=== PATIENT | female | born 1945 | race African-American/Black ===

== ENCOUNTER → 2018-06-19 | Outpatient (REF) | payer MEDICARE ==
[~2018-06-19] MED LIST: AMARYL4 MG PO; AMOXICILLIN250 M1 PO; AMOXICILLIN875 MG PO; AUGMENTIN500TAB PO; BABY ASPIRIN81 MG OR; BAYER ASPIRIN E81 MG PO; BIAXIN500 M1 PO; CIPROFLOXACN500 MG PO; COMBIVENT INH; FLONASE NASAL50 MCG; FLUTICASONE50 MCG; HUMALOG100 MG/ML SC; LANTUS100 MG/ML SC; LEVEMIR SC; LEVEMIR1000 UNITS SC; LIPITOR10 MG OR; LISINOP/HCTZ1 TA1 PO; LISINOPRIL10 MG PO; MEDDOSEPAK PO; METFORMIN500 M2 PO; NAPROSYN500 MG OR; NOVOLIN 70/30 SC; OMEPRAZOLE20 M1 PO; PHENERGAN12.5 MG/TA PO; PRAVACHOL40 MG PO; PROAIR HFA IN; QVAR80 MCG MT; SIMVASTATIN20 MG PO; STOOL SOFTE1 PO; TRAMADOL HCL50 MG PO; VERAPAMIL240 M1 PO; ZESTRIL/PRI20 MG/TAB PO; ZYRTEC-D AL1 OR; [UNRECOGNIZED DRUG - SUPPLY]; [UNRECOGNIZED DRUG - SUPPLY] XX
[2018-06-19 10:31] LABS: HEMATOCRIT 37.7 % (37.0-47.0); HEMOGLOBIN 11.6 g/dl (12.0-16.0); MEAN CELL VOLUME 78.1 fL CALC (80.0-100.0); MEAN CORPUSCULAR HGB CONC 30.8 g/L CALC (32.0-36.0); RED BLOOD COUNT 4.83 mill/uL (4.20-5.60); RED CELL DISTRI WIDTH 13.4 % (11.5-15.5)
[2018-06-19 10:50] LABS: ALBUMIN 4.7 g/dL (3.2-5.0); BILIRUBIN, TOTAL 0.3 mg/dL (0.0-1.4); CHOLESTEROL HDL RATIO 2.5 (<4.4 (CALC)); CREATININE 1.3 mg/dL (0.5-1.0); POTASSIUM 4.2 mmol/l (3.5-5.1); TOTAL PROTEIN 7.8 g/dL (6.3-8.2)
== END | disposition home or self-care (01) ==
LOC: LAB 08:55
PROVIDERS: ATTEND Nurse Practitioner Adult Health
DX: E78.2 Mixed hyperlipidemia (principal); I10 Essential (primary) hypertension

== ENCOUNTER 2019-03-06 15:05 | Emergency (ER) | payer MEDICARE ==
[~2019-03-06] VITALS: Ht 170.2 cm; Wt 75.0 kg
[2019-03-06] MEDS ORDERED: VERAPAMIL HCL240 MG PO (15:55)
[2019-03-06] MEDS ORDERED: LUMIGAN0.01 % OD (15:56)
[2019-03-06] MEDS ORDERED: GLIMEPIRIDE2 MG PO (15:56)
[2019-03-06] MEDS ORDERED: LISINOP/HCTZ1 TA1 PO (15:56)
[2019-03-06] MEDS ORDERED: GLIMEPIRIDE4 MG PO (15:57)
[2019-03-06] MEDS ORDERED: METFORMIN HCL500 M1 PO (15:57)
[2019-03-06] MEDS ORDERED: ROSUVASTATIN CA20 MG PO (15:58)
[2019-03-06 16:19] LABS: HEMATOCRIT 36.6 % (37.0-47.0); HEMOGLOBIN 11.1 g/dl (12.0-16.0); IMMATURE GRANULOCYTES 0.3 % (0.0-5.0); MEAN CELL VOLUME 76.1 fL CALC (80.0-100.0); MEAN CORPUSCULAR HGB 23.1 pG CALC (26.0-32.0); MEAN CORPUSCULAR HGB CONC 30.3 g/L CALC (32.0-36.0); NEUT# 3.86 thou/uL (2.00-7.15); RED BLOOD COUNT 4.81 mill/uL (4.20-5.60); RED CELL DISTRI WIDTH 13.7 % (11.5-15.5)
[2019-03-06 17:00] VITALS: BP 110/59
[2019-03-06] MEDS ORDERED: PREDNISONE50 MG PO (17:00)
[2019-03-06] MEDS ORDERED: TESSALON PER100 MG PO (17:00)
== END 2019-03-06 17:00 | disposition home or self-care (01) ==
LOC: ED 15:05
PROVIDERS: Family Medicine
DX: J44.1 Chronic obstructive pulmonary disease with (acute) exacerbation (principal); B34.9 Viral infection, unspecified; E11.9 Type 2 diabetes mellitus without complications; I10 Essential (primary) hypertension; Z79.84 Long term (current) use of oral hypoglycemic drugs

== ENCOUNTER 2019-05-03 | Emergency (ER) | payer MEDICARE ==
[~2019-05-03] MED LIST changes: +GLIMEPIRIDE2 MG PO; +GLIMEPIRIDE4 MG PO; +LUMIGAN0.01 % OD; +METFORMIN HCL500 M1 PO; +PREDNISONE50 MG PO; +ROSUVASTATIN CA20 MG PO; +TESSALON PER100 MG PO; +VERAPAMIL HCL240 MG PO
[2019-05-03] MEDS ORDERED: JANUVIA100 MG PO (22:40)
[2019-05-03] MEDS ORDERED: ASPIRIN CHEWABL81 MG PO (22:42)
[2019-05-03] MEDS ORDERED: GENTAMICIN0.3 % OS (22:59)
== END 2019-05-03 23:28 | disposition home or self-care (01) ==
DX: H01.002 Unspecified blepharitis right lower eyelid (principal); E11.9 Type 2 diabetes mellitus without complications; I10 Essential (primary) hypertension; J44.9 Chronic obstructive pulmonary disease, unspecified

== ENCOUNTER 2020-04-14 21:18 | Emergency (ER) | payer MEDICARE ==
[~2020-04-14] VITALS: Ht 170.2 cm; Wt 78.2 kg
[~2020-04-14 21:18] MED LIST changes: +ASPIRIN CHEWABL81 MG PO; +GENTAMICIN0.3 % OS; +JANUVIA100 MG PO
[2020-04-14 22:12] LABS: HEMATOCRIT 36.1 % (37.0-47.0); HEMOGLOBIN 10.9 g/dl (12.0-16.0); IMMATURE GRANULOCYTES 0.2 % (0.0-5.0); MEAN CELL VOLUME 77.8 fL CALC (80.0-100.0); MEAN CORPUSCULAR HGB 23.5 pG CALC (26.0-32.0); MEAN CORPUSCULAR HGB CONC 30.2 g/dL CAL (32.0-36.0); NEUT# 2.13 thou/uL (2.00-7.15); RED BLOOD COUNT 4.64 mill/uL (4.20-5.60); RED CELL DISTRI WIDTH 13.6 % (11.5-15.5)
[2020-04-14] MEDS ORDERED: LOSARTAN POTASS50 MG PO (22:25)
[2020-04-14] MEDS ORDERED: METFORMIN500 M2 PO (22:25)
[2020-04-14] MEDS ORDERED: LIPITOR20 MG PO (22:26)
[2020-04-14 22:31] LABS: ALBUMIN 4.1 g/dL (3.2-5.0); ALKALINE PHOSPHATASE 71 u/l (38-126); ANION GAP 12 (6-22 (CALC)); BILIRUBIN, TOTAL 0.2 mg/dL (0.0-1.4); BUN 18 mg/dL (8-23); BUN/CREATININE RATIO 15 (12-20 (CALC)); CARBON DIOXIDE 24 mmol/l (22-30); CHLORIDE 106 mmol/l (95-108); CREATININE 1.3 mg/dL (0.5-1.0); GFR 40 ML/MIN (>=60 (CALC)); GFR FOR AFR.AMER. 48 ML/MIN (>=60 (CALC)); POTASSIUM 3.5 mmol/l (3.5-5.1); SGOT/AST 30 u/l (9-36); SODIUM 139 mmol/l (137-146); TOTAL PROTEIN 7.3 g/dL (6.3-8.2)
[2020-04-14 22:41] LABS: MYOGLOBIN 30 ng/mL (0 - 62)
[2020-04-14 23:14] VITALS: BP 153/70
== END 2020-04-14 23:14 | disposition home or self-care (01) ==
LOC: ED 21:18
PROVIDERS: Emergency Medicine
DX: I10 Essential (primary) hypertension (principal); E11.9 Type 2 diabetes mellitus without complications; J44.9 Chronic obstructive pulmonary disease, unspecified; Z79.84 Long term (current) use of oral hypoglycemic drugs

== ENCOUNTER 2022-04-18 15:52 | Emergency (ER) | payer MEDICARE ==
[~2022-04-18] VITALS: Ht 170.2 cm; Wt 84.0 kg
[2022-04-18] VITALS (10 sets, daily range): BP systolic 152–181; BP diastolic 68–85
[~2022-04-18 15:52] MED LIST changes: +LIPITOR20 MG PO; +LOSARTAN POTASS50 MG PO
[2022-04-18] MEDS ORDERED: PERCOCET 5/325M1 TAB PO (17:11)
[2022-04-18] MEDS ORDERED: NAPROXEN500 MG PO (17:11)
== END 2022-04-18 17:55 | disposition home or self-care (01) ==
LOC: ED 15:52
PROC: 2W3BX1Z Immobilization of Left Upper Arm using Splint (ICD-10-PCS; principal; 2022-04-18)
DX: S42.302A Unspecified fracture of shaft of humerus, left arm, initial encounter for closed fracture (principal); I10 Essential (primary) hypertension; E11.9 Type 2 diabetes mellitus without complications; E78.00 Pure hypercholesterolemia, unspecified; J44.9 Chronic obstructive pulmonary disease, unspecified; W01.0XXA Fall on same level from slipping, tripping and stumbling without subsequent striking against object, initial encounter; Y92.000 Kitchen of unspecified non-institutional (private) residence as the place of occurrence of the external cause; Z79.84 Long term (current) use of oral hypoglycemic drugs

== ENCOUNTER 2022-07-01 18:19 | Emergency (ER) | payer MEDICARE ==
[2022-07-01] VITALS (17 sets, daily range): BP systolic 130–180; BP diastolic 59–144
[~2022-07-01] VITALS: Ht 170.2 cm; Wt 80.4 kg
[~2022-07-01 18:19] MED LIST changes: +LOSARTAN POTASS25 MG PO; -LOSARTAN POTASS50 MG PO; +NAPROXEN500 MG PO; +PERCOCET 5/325M1 TAB PO
[2022-07-01 21:28] LABS: BASO% 0.9 % (0-3); EOS% 0.9 % (0-8); HEMATOCRIT 41.3 % (37.0-47.0); HEMOGLOBIN 12.3 g/dl (12.0-16.0); IMMATURE GRANULOCYTES 0.6 % (0.0-5.0); LYMPH% 30.8 % (15-41); MEAN CELL VOLUME 77.3 fL CALC (80.0-100.0); MEAN CORPUSCULAR HGB CONC 29.8 g/dL CAL (32.0-36.0); MONO% 13.8 % (2-13); NEUT# 1.77 thou/uL (2.00-7.15); RED BLOOD COUNT 5.34 mill/uL (4.20-5.60); RED CELL DISTRI WIDTH 13.7 % (11.5-15.5)
[2022-07-01 22:45] LABS: ALBUMIN 4.1 g/dL (3.2-5.0); ALKALINE PHOSPHATASE 95 u/l (38-126); BUN 8 mg/dL (8-23); BUN/CREATININE RATIO 8 (12-20 (CALC)); CHLORIDE 107 mmol/l (95-108); GFR FOR AFR.AMER. > 60 ML/MIN (>=60 (CALC)); GFR OTHER RACES 54 ML/MIN (>=60 (CALC)); POTASSIUM 4.5 mmol/l (3.5-5.1); SGOT/AST 38 u/l (9-36); SODIUM 138 mmol/l (137-146); TOTAL PROTEIN 7.5 g/dL (6.3-8.2)
[2022-07-01 22:47] LABS: ANION GAP 13 (6-22 (CALC)); BILIRUBIN, TOTAL 0.2 mg/dL (0.02-1.3); CARBON DIOXIDE 23 mmol/l (22-30)
[2022-07-01] MEDS ORDERED: PAXLOVID PO (23:24)
== END 2022-07-01 23:57 | disposition home or self-care (01) ==
LOC: ED 18:19
PROVIDERS: Emergency Medicine
DX: U07.1 COVID-19 (principal); R05.9 Cough, unspecified; M79.10 Myalgia, unspecified site; R19.7 Diarrhea, unspecified; I10 Essential (primary) hypertension; E11.9 Type 2 diabetes mellitus without complications; E78.00 Pure hypercholesterolemia, unspecified; J44.9 Chronic obstructive pulmonary disease, unspecified

== ENCOUNTER 2022-07-05 09:09 | Emergency (ER) | payer MEDICARE ==
[~2022-07-05] VITALS: Ht 170.2 cm; Wt 80.0 kg
[~2022-07-05 09:09] MED LIST changes: +PAXLOVID PO
[2022-07-05 09:22] VITALS: BP 151/73
[2022-07-05 09:42] LABS: BASO% 0.3 % (0-3); EOS% 0.8 % (0-8); HEMATOCRIT 43.2 % (37.0-47.0); IMMATURE GRANULOCYTES 0.3 % (0.0-5.0); LYMPH% 40.5 % (15-41); MEAN CELL VOLUME 76.3 fL CALC (80.0-100.0); MEAN CORPUSCULAR HGB CONC 30.1 g/dL CAL (32.0-36.0); MONO% 13.6 % (2-13); NEUT# 1.78 thou/uL (2.00-7.15); NEUT% 44.5 % (42-76); RED BLOOD COUNT 5.66 mill/uL (4.20-5.60); RED CELL DISTRI WIDTH 13.2 % (11.5-15.5)
[2022-07-05 09:56] LABS: ALBUMIN 4.3 g/dL (3.2-5.0); CREATININE 1.3 mg/dL (0.5-1.0); POTASSIUM 4.3 mmol/l (3.5-5.1); TOTAL PROTEIN 7.8 g/dL (6.3-8.2)
[2022-07-05 10:02] LABS: BILIRUBIN, TOTAL 0.4 mg/dL (0.02-1.3)
[2022-07-05 12:32] VITALS: BP 151/73
== END 2022-07-05 12:34 | disposition left against medical advice (07) ==
LOC: ED 09:09 → ED-I 11:00 → ED 12:34
PROVIDERS: Family Medicine
DX: U07.1 COVID-19 (principal); N17.9 Acute kidney failure, unspecified; R05.9 Cough, unspecified; R53.83 Other fatigue; R53.1 Weakness; I10 Essential (primary) hypertension; E11.9 Type 2 diabetes mellitus without complications; J44.9 Chronic obstructive pulmonary disease, unspecified; E78.00 Pure hypercholesterolemia, unspecified; Z53.29 Procedure and treatment not carried out because of patient's decision for other reasons

== ENCOUNTER 2024-07-04 21:23 | Observation (INO) | payer MEDICARE ==
[~2024-07-04] VITALS: Ht 170.2 cm; Wt 66.0 kg
[2024-07-04 21:36] VITALS: BP 111/57
[2024-07-04] MEDS ORDERED: MORPHINE SULFATE 4 MG/ML VIAL IV ONE (21:50)
[2024-07-04] MEDS ORDERED: ASPIRIN 81 MG/TAB PO ONE ×2 (21:50)
[2024-07-04] MEDS ORDERED: ONDANSETRON HCl 4 MG/2 ML SDV IV ONE (21:50)
[2024-07-04 22:04] VITALS: BP 88/56
[2024-07-04 22:06] VITALS: BP 104/59
[2024-07-04 22:14] LABS: BASO% 0.2 % (0-3); EOS% 1.1 % (0-8); HEMATOCRIT 42.6 % (37.0-47.0); HEMOGLOBIN 13.5 g/dl (12.0-16.0); IMMATURE GRANULOCYTES 0.2 % (0.0-5.0); LYMPH% 23.1 % (15-41); MEAN CELL VOLUME 72.3 fL CALC (80.0-100.0); MEAN CORPUSCULAR HGB 22.9 pG CALC (26.0-32.0); MEAN CORPUSCULAR HGB CONC 31.7 g/dL CAL (32.0-36.0); MONO% 7.9 % (2-13); NEUT% 67.5 % (42-76); RED BLOOD COUNT 5.89 mill/uL (4.20-5.60); RED CELL DISTRI WIDTH 14.5 % (11.5-15.5)
[2024-07-04 22:23] LABS: ALKALINE PHOSPHATASE 96 u/l (38-126); ANION GAP 13 (6-22 (CALC)); BILIRUBIN, TOTAL 0.9 mg/dL (0.02-1.3); BUN 23 mg/dL (8-23); BUN/CREATININE RATIO 19 (12-20 (CALC)); CARBON DIOXIDE 25 mmol/l (22-30); CHLORIDE 99 mmol/l (95-108); CREATININE 1.2 mg/dL (0.5-1.0); ESTIMATED GFR 46 ML/MIN (>=90 (CALC)); LIPASE 233 u/l (23-300); POTASSIUM 4.1 mmol/l (3.5-5.1); SGOT/AST 32 u/l (9-36); SODIUM 134 mmol/l (137-146); TOTAL PROTEIN 7.3 g/dL (6.3-8.2)
[2024-07-04 22:25] LABS: INTERNATIONAL NORMALIZED RATIO 0.9 RATIO (0.7-1.3)
[2024-07-04 22:45] LABS: PROTHROMBIN TIME 9.9 SECONDS (9.0-12.5)
[2024-07-04 23:00] VITALS: BP 96/63
[2024-07-04] MEDS ORDERED: COREG6.25 MG PO (23:30)
[2024-07-04] MEDS ORDERED: FARXIGA10 MG PO (23:31)
[2024-07-05] VITALS (7 sets, daily range): BP systolic 92–139; BP diastolic 43–90
[2024-07-05] MEDS ORDERED: IBUPROFEN 800 MG/TAB PO PRN (00:45)
[2024-07-05] MEDS ORDERED: Polyethylene Glycol 3350 17 GM/PKT PO PRN (00:45)
[2024-07-05] MEDS ORDERED: ALUM & MAG HYDROX-SIMETHICONE 30 ML PO PRN (00:45)
[2024-07-05] MEDS ORDERED: ONDANSETRON 4 MG/TAB ODT PO PRN (00:45)
[2024-07-05] MEDS ORDERED: FAMOTIDINE 10MG/ML 2ML SDV IV PRN (00:45)
[2024-07-05] MEDS ORDERED: ONDANSETRON HCl 4 MG/2 ML SDV IV PRN (00:45)
[2024-07-05] MEDS ORDERED: DEXTROSE 250 ML IV PRN ×2 (07:15)
[2024-07-05] MEDS ORDERED: INSULIN NPH ISOPHANE & REG (HU 100 UNITS/ML SC SCH (08:00)
[2024-07-05] MEDS ORDERED: LOSARTAN Potassium 50 MG/TAB PO SCH (09:00)
[2024-07-05] MEDS ORDERED: VERAPAMIL HCL ER 120 MG/CAP PO SCH (09:00)
[2024-07-05] MEDS ORDERED: CARVEDILOL 6.25 MG/TAB PO SCH (09:00)
[2024-07-05] MEDS ORDERED: ASPIRIN 81 MG/TAB PO SCH (09:00)
[2024-07-05] MEDS ORDERED: INSULIN LISPRO 100 UNITS/ML ML SC SCH (11:00)
[2024-07-05] MEDS ORDERED: PANTOPRAZOLE SODIUM Sesquihydr 40 MG/TAB PO SCH (14:30)
[2024-07-05] MEDS ORDERED: SIMETHICONE 20 MG/0.3 ML PO PRN (20:35)
[2024-07-05] MEDS ORDERED: ATORVASTATIN CALCIUM 20 MG/TAB PO SCH (21:00)
[2024-07-05] MEDS ORDERED: CLARIFY DOSE PO PRN (21:20)
[2024-07-06 00:19] VITALS: BP 96/56
[2024-07-06 03:43] VITALS: BP 97/56
[2024-07-06 06:04] LABS: BASO% 0.5 % (0-3); EOS% 5.2 % (0-8); HEMATOCRIT 41.9 % (37.0-47.0); HEMOGLOBIN 13.1 g/dl (12.0-16.0); IMMATURE GRANULOCYTES 0.2 % (0.0-5.0); LYMPH% 39.8 % (15-41); MEAN CELL VOLUME 73.3 fL CALC (80.0-100.0); MEAN CORPUSCULAR HGB 22.9 pG CALC (26.0-32.0); MEAN CORPUSCULAR HGB CONC 31.3 g/dL CAL (32.0-36.0); MONO% 9.4 % (2-13); NEUT# 2.52 thou/uL (2.00-7.15); NEUT% 44.9 % (42-76); RED BLOOD COUNT 5.72 mill/uL (4.20-5.60); RED CELL DISTRI WIDTH 14.5 % (11.5-15.5)
[2024-07-06 06:08] VITALS: BP 97/56
[2024-07-06 06:20] LABS: ALBUMIN 3.6 g/dL (3.2-5.0); BILIRUBIN, TOTAL 0.6 mg/dL (0.02-1.3); CREATININE 1.3 mg/dL (0.5-1.0); MAGNESIUM 2.4 mg/dL (1.6-2.3); POTASSIUM 3.8 mmol/l (3.5-5.1); TOTAL PROTEIN 6.8 g/dL (6.3-8.2)
[2024-07-06 06:22] LABS: INTERNATIONAL NORMALIZED RATIO 0.9 RATIO (0.7-1.3)
[2024-07-06 06:29] LABS: PROTHROMBIN TIME 10.2 SECONDS (9.0-12.5)
[2024-07-06 08:06] VITALS: BP 100/70
[2024-07-06] MEDS ORDERED: PANTOPRAZOLE SO40 M1 PO (11:44)
[2024-07-06 19:21] VITALS: BP 109/57
== END 2024-07-06 13:34 | disposition home or self-care (01) ==
LOC: ED 21:23 → ED-I 22:09 → ED 22:09 → ED-I 07-05 00:18 → ED 07-05 00:46 → MS2 07-05 00:47 → ED-I 07-05 00:47 → MS2 07-05 11:38
PROVIDERS: Internal Medicine; ADMIT Internal Medicine; ATTEND Internal Medicine
DX: R07.9 Chest pain, unspecified (principal); I08.0 Rheumatic disorders of both mitral and aortic valves; I10 Essential (primary) hypertension; E11.9 Type 2 diabetes mellitus without complications; E78.00 Pure hypercholesterolemia, unspecified; J44.9 Chronic obstructive pulmonary disease, unspecified; Z79.4 Long term (current) use of insulin; Z86.73 Personal history of transient ischemic attack (TIA), and cerebral infarction without residual deficits; Z87.891 Personal history of nicotine dependence; Z90.01 Acquired absence of eye
CPT/HCPCS: J1815; J2405